=== PATIENT | male | born 1960 | race Caucasian/White ===

== ENCOUNTER 2017-01-07 15:17 | Emergency (ER) | payer OTHER ==
[~2017-01-07] VITALS: Ht 182.9 cm; Wt 106.0 kg
[~2017-01-07 15:17] MED LIST: LISI2.5T PO
[2017-01-07] MEDS ORDERED: DIPH,PERTUSS(ACELL),TET VAC/PF 0.5 ML IM-VACC ONE ×2 (16:00→16:18)
[2017-01-07] MEDS ORDERED: LIDOCAINE 1%, 20ML ONE (16:51)
[2017-01-07] MEDS ORDERED: LIDOCAINE 1%, 20ML INFIL ONE (17:00)
[2017-01-07 18:03] VITALS: BP 141/86
== END 2017-01-07 18:09 | disposition home or self-care (01) ==
LOC: ED 16:44
DX: S61.215A Laceration without foreign body of left ring finger without damage to nail, initial encounter (principal); I10 Essential (primary) hypertension; Z23 Encounter for immunization; X58.XXXA Exposure to other specified factors, initial encounter; Y93.89 Activity, other specified; Y99.8 Other external cause status; Y92.009 Unspecified place in unspecified non-institutional (private) residence as the place of occurrence of the external cause
CPT/HCPCS: 12001; 90471; 90715